=== PATIENT | male | born 1955 | race Caucasian/White ===

== ENCOUNTER 2023-05-18 06:29 | Day surgery (SDC) | payer MEDICARE, BC ==
[~2023-05-18] VITALS: Ht 177.8 cm; Wt 115.2 kg
[2023-05-18] MEDS ORDERED: NO HOME MEDS (06:50)
[2023-05-18] MEDS ORDERED: LIDOcaine 1% 30ml preserv. free vial SQ STA (06:52)
[2023-05-18 06:54] VITALS: BP 106/74; PULSE 83; RESP 15; TEMP 98; O2SAT 93
[2023-05-18 07:23] VITALS: RESP 14; O2SAT 96
[2023-05-18 07:36] LABS: BASOPHILS # (AUTO) 0.2 X10'3 (0-0.2); EOSINOPHILS # (AUTO) 0.3 X10'3 (0-0.9); EOSINOPHILS % (AUTO) 3.5 % (0-6); HEMATOCRIT 47.7 % (42.0-52.0); HEMOGLOBIN 16.1 g/dl (14.0-17.9); LYMPHOCYTES # (AUTO) 2.6 X10'3 (1.1-4.8); LYMPHOCYTES % (AUTO) 29.5 % (21-51); MEAN CORPUSCULAR HEMOGLOBIN 31.8 PG (27.0-31.0); MEAN CORPUSCULAR HGB CONC 33.8 g/dL (33.0-36.5); MEAN CORPUSCULAR VOLUME 94.1 FL (78-98); MEAN PLATELET VOLUME 8.1 FL (7.4-10.4); MONOCYTES % (AUTO) 11.1 % (2-12); NEUTROPHILS # (AUTO) 4.8 X10'3 (1.8-7.7); NEUTROPHILS % (AUTO) 53.9 % (42-75); PLATELET COUNT 287 X10'3 (140-440); RED BLOOD COUNT 5.07 X10'6 (4.70-6.10); WHITE BLOOD COUNT 8.9 X10'3 (4.5-11.0)
== END 2023-05-18 09:50 | disposition home or self-care (01) ==
LOC: SSTAY O 06:29
PROVIDERS: ATTEND Radiology Vascular & Interventional Radiology
DX: R19.09 Other intra-abdominal and pelvic swelling, mass and lump (principal); D17.1 Benign lipomatous neoplasm of skin and subcutaneous tissue of trunk
CPT/HCPCS: 32408; 36415; 49180; 76942; 85025; 88304; A6449